=== PATIENT | female | born 1995 | race Caucasian/White ===

== ENCOUNTER 2017-06-19 13:50 | Inpatient (IN) | payer MEDICAID ==
[2017-06-21] MEDS ORDERED: MAGNESIUM HYDROXIDE 30 ML UDCUP PO PRN (17:23)
[2017-06-21] MEDS ORDERED: BISACODYL 10 MG SUPP PR PRN (17:23)
[2017-06-21] MEDS ORDERED: MAG HYDROX/AL HYDROX/SIMETH 30 ML UDCUP PO PRN (17:23)
[2017-06-21] MEDS ORDERED: ALBUTEROL 200 PUFFS/18 GM MDI IH PRN (17:33)
[2017-06-21] MEDS: IBUPROFEN 600 MG TAB PO PRN (17:56)
[2017-06-21] MEDS ORDERED: ONDANSETRON DISINTEGRATING 4 MG TAB PO PRN (18:18)
[2017-06-21] MEDS: HYDROmorphONE/DILAUDID 2 MG TAB PO PRN (19:36)
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
[2017-06-21] MEDS: ACETAMINOPHEN 325 MG TAB PO PRN (21:04)
[2017-06-21] MEDS: levETIRAcetam 500 MG TAB PO SCH (21:04)
[2017-06-21] MEDS: GABAPENTIN 100 MG CAP PO SCH (21:04)
[2017-06-21] MEDS: POLYETHYLENE GLYCOL 3350 17 GM PKT PO PRN (21:05)
[2017-06-21] MEDS: SENNOSIDES/DOCUSATE SODIUM TAB PO SCH (21:05)
[2017-06-21] MEDS: DIAZEPAM 2 MG TAB PO PRN (22:35)
[2017-06-21] MEDS: PET HY PHL TP SCH (23:40)
[2017-06-21] MEDS: MINERAL OIL TP SCH (23:40)
[2017-06-22] MEDS: HYDROmorphONE/DILAUDID 2 MG TAB PO PRN ×4 (02:48→20:39)
[2017-06-22] MEDS: IBUPROFEN 600 MG TAB PO PRN ×2 (03:20→15:12)
[2017-06-22] MEDS: ACETAMINOPHEN 325 MG TAB PO PRN (08:06)
[2017-06-22] MEDS: GABAPENTIN 100 MG CAP PO SCH ×3 (08:07→20:40)
[2017-06-22] MEDS: SENNOSIDES/DOCUSATE SODIUM TAB PO SCH ×2 (08:07→20:40)
[2017-06-22] MEDS: levETIRAcetam 500 MG TAB PO SCH ×2 (08:07→20:40)
[2017-06-22 08:26] LABS: % IMMATURE GRANULYOCYTES 0.8 % (0.0-1.1); ABSOLUTE IMMATURE GRANULOCYTES 0.07 10^3/uL (0.00-0.10); ADD DIFF? NO; ADD MORPH? NO; ADD SCAN? NO; ATYPICAL LYMPHOCYTE FLAG 20 (0-99); FRAGMENT RBC FLAG 0 (0-99); HEMATOCRIT 38.1 % (38.0-47.0); LEFT SHIFT FLG 0 (0-99); LIPEMIA HEMOLYSIS FLAG 90 (0-99); MEAN CELL HEMOGLOBIN 29.5 pg (27.9-34.1); MEAN CELL HEMOGLOBIN CONCENTR. 34.1 g/dL (32.4-36.7); MEAN CELL VOLUME 86.4 fL (81.5-99.8); MEAN PLATELET VOLUME 9.8 fL (8.7-11.7); PLATELET CLUMPS FLAG 20 (0-99); PLATELET COUNT 289 10^3/uL (150-400); RED BLOOD CELL COUNT 4.41 10^6/uL (4.18-5.33); RED CELL DISTRIBUTION WIDTH 13.2 % (11.5-15.2)
[2017-06-22 08:38] LABS: INR 0.99 (0.83-1.16)
[2017-06-22 08:44] LABS: ALANINE AMINOTRANSFERASE 29 IU/L (9-52); ALBUMIN 3.7 g/dL (3.5-5.0); ALKALINE PHOSPHATASE 76 IU/L (38-126); ANION GAP 12 mEq/L (8-16); ASPARTATE AMINOTRANSFERASE 13 IU/L (14-46); BILIRUBIN,TOTAL 0.4 mg/dL (0.1-1.4); CARBON DIOXIDE 23 mEq/l (22-31); CHLORIDE 102 mEq/L (97-110); CREATININE 0.7 mg/dL (0.6-1.0); GLOMERULAR FILTRATION RATE > 60; GLUCOSE 88 mg/dL (70-100); SODIUM 137 mEq/L (134-144); TOTAL PROTEIN 6.5 g/dL (6.3-8.2)
[2017-06-22] MEDS ORDERED: MECLIZINE HCL 25 MG TAB PO PRN (10:12)
--- NOTE | 2017-06-22 10:15 | SOAPPROG ---
SOAP Progress Note Assessment/Plan: Assessment: 1. Traumatic brain injury - Diffuse subarachnoid hemorrhage and cerebral contusions. We will continue to monitor for neurological sequelae and headaches. Seizure precautions in effect. Continue Keppra 1000 mg b.i.d. 2. Gait dysfunction - Physical therapy consultation for trunk and lower extremity strengthening, gait training. Screen for balance and dizziness. Consider cosulting physical therapist who specializes in dizziness/balance disorder. 3. Activities of daily living dysfunction. Occupational therapy consult for upper extremity and trunk strengthening. Provide assistive devices as needed. Screen for visual field deficits. 4. Speech Therapy -will consult to screen for cognitive deficits. 5. Headaches - Continue hydromorphone 2-4 mg, take 2 mg p.o. pain level of 1-5 , 4 mg p.o. pain level 6-10. I have also written orders for Tylenol 650 p.o. q.4 hours p.r.n. headache and Fioricet q.6 hours p.r.n. headache. She has retrooccular pain which is most likely referred from skull fracture. 6. Asthma - Continue Ventolin inhaler 1 puff q.6 hours p.r.n. 7. Bowel program. Bowel medications written as part of rehabilitation protocol. Encourage fluids. I have explained to patient and her father that opioid analgesics tend to cause constipation so we will try to wean her off in an appropriate fashion if constipation remains an issue. 8. Breast mass. She has a small breast mass on the sternal side of the left breast, appears mobile. Nonerythematous. We will recommend consulting gynecological services to evaluate left breast mass. 9. Code status. Full code. 10. Anticoagulation - Deep vein thrombosis prophylaxis via knee-high AKOSUA hose and sequential compression devices. Patient is not on anticoagulant medications. 11.Left wrist pain-will obtain left wrist xrays r/o ulnar styloid fracture. 12.Dizziness- begin meclazine 25 bid. Plan: 06/22/17 10:07 Subjective: She continues to c/o HAs, dizziness when sitting up and retrooccular pain. Also c/o back and posterior thigh pain Objective: Vital Signs Temp Pulse Resp BP Pulse Ox 36.9 C 67 16 101/63 93 06/22/17 07:52 06/22/17 07:52 06/22/17 07:52 06/22/17 07:52 06/22/17 07:52 Laboratory Results 06/22/17 07:30 06/22/17 07:30 06/21/17 06/22/17 06/23/17 05:59 05:59 05:59 Intake Total 490 120 Balance 490 120 PT 13.0 SEC (12.0-15.0) 06/22/17 07:30 INR 0.99 (0.83-1.16) 06/22/17 07:30 Physical Exam - Physical Exam General Appearance: WD/WN, alert, mild distress (due to DELA CRUZ and neck pain) EENT: PERRL/EOMI Neck: non-tender, full range of motion Respiratory: lungs clear Cardiac/Chest: No edema Abdomen: non-tender, soft Skin: normal color, warm/dry Extremities: other (left ulnat styloid tender to palpation), No swelling, No Dorothy's sign Neuro/Psych: no motor/sensory deficits, alert, oriented x 3 ICD10 Worksheet Patient Problems: Problems Problem Status Onset Mild TBI (traumatic brain injury) Acute - ICD10 Problem Qualifiers (1) Mild TBI (traumatic brain injury) Qualifiers: Encounter type: E Loss of consciousness presence/duration: L
[2017-06-22] MEDS: MINERAL OIL TP SCH (10:58)
[2017-06-22] MEDS: PET HY PHL TP SCH (10:58)
[2017-06-22] MEDS ORDERED: ACET/CAFFEINE/BUTA FIORICET 1 EACH TAB PO SCH (12:00)
[2017-06-22] MEDS: AQUAPHOR OINTMENT 3.5 OZ JAR TP SCH ×2 (17:01→22:00)
[2017-06-23] MEDS: HYDROmorphONE/DILAUDID 2 MG TAB PO PRN ×5 (02:39→20:39)
[2017-06-23] MEDS: GABAPENTIN 100 MG CAP PO SCH ×3 (08:16→20:19)
[2017-06-23] MEDS: levETIRAcetam 500 MG TAB PO SCH ×2 (08:16→20:19)
[2017-06-23] MEDS: SENNOSIDES/DOCUSATE SODIUM TAB PO SCH ×2 (08:16→20:19)
[2017-06-23] MEDS: IBUPROFEN 600 MG TAB PO PRN ×2 (08:18→19:29)
[2017-06-23] MEDS: AQUAPHOR OINTMENT 3.5 OZ JAR TP SCH ×3 (08:19→20:20)
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
[2017-06-23] MEDS: traMADol 50 MG TAB PO SCH ×2 (18:01→23:40)
[2017-06-23] MEDS: DIAZEPAM 2 MG TAB PO PRN (21:34)
[2017-06-24] MEDS: traMADol 50 MG TAB PO SCH ×3 (06:39→17:25)
[2017-06-24] MEDS: ACETAMINOPHEN 325 MG TAB PO PRN ×2 (06:44→11:11)
[2017-06-24] MEDS: SENNOSIDES/DOCUSATE SODIUM TAB PO SCH ×2 (08:41→20:11)
[2017-06-24] MEDS: HYDROmorphONE/DILAUDID 2 MG TAB PO PRN ×3 (08:42→19:36)
[2017-06-24] MEDS: GABAPENTIN 100 MG CAP PO SCH ×3 (08:42→20:12)
[2017-06-24] MEDS: levETIRAcetam 500 MG TAB PO SCH ×2 (08:42→20:11)
[2017-06-24] MEDS: AQUAPHOR OINTMENT 3.5 OZ JAR TP SCH ×3 (08:44→20:19)
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
[2017-06-24] MEDS: DIAZEPAM 2 MG TAB PO PRN ×2 (14:20→20:11)
[2017-06-24] MEDS: IBUPROFEN 600 MG TAB PO PRN ×2 (14:20→20:11)
[2017-06-25] MEDS: traMADol 50 MG TAB PO SCH ×5 (01:24→23:51)
[2017-06-25] MEDS: HYDROmorphONE/DILAUDID 2 MG TAB PO PRN ×4 (07:37→21:13)
[2017-06-25] MEDS: GABAPENTIN 100 MG CAP PO SCH ×3 (07:38→20:34)
[2017-06-25] MEDS: levETIRAcetam 500 MG TAB PO SCH ×2 (07:38→20:34)
[2017-06-25] MEDS: SENNOSIDES/DOCUSATE SODIUM TAB PO SCH ×2 (07:39→20:34)
[2017-06-25] MEDS: ACETAMINOPHEN 325 MG TAB PO PRN ×2 (07:46→19:41)
[2017-06-25] MEDS: AQUAPHOR OINTMENT 3.5 OZ JAR TP SCH ×2 (07:50→17:59)
[2017-06-25] MEDS: IBUPROFEN 600 MG TAB PO PRN (10:59)
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
[2017-06-25 15:12] LABS: % IMMATURE GRANULYOCYTES 0.6 % (0.0-1.1); ABSOLUTE IMMATURE GRANULOCYTES 0.04 10^3/uL (0.00-0.10); ADD DIFF? NO; ADD MORPH? NO; ADD SCAN? NO; ATYPICAL LYMPHOCYTE FLAG 10 (0-99); FRAGMENT RBC FLAG 0 (0-99); HEMATOCRIT 37.7 % (38.0-47.0); HEMOGLOBIN 12.7 g/dL (12.6-16.3); LEFT SHIFT FLG 0 (0-99); LIPEMIA HEMOLYSIS FLAG 80 (0-99); MEAN CELL HEMOGLOBIN 29.8 pg (27.9-34.1); MEAN CELL HEMOGLOBIN CONCENTR. 33.7 g/dL (32.4-36.7); MEAN CELL VOLUME 88.5 fL (81.5-99.8); MEAN PLATELET VOLUME 9.7 fL (8.7-11.7); PLATELET CLUMPS FLAG 0 (0-99); PLATELET COUNT 275 10^3/uL (150-400); RED BLOOD CELL COUNT 4.26 10^6/uL (4.18-5.33); RED CELL DISTRIBUTION WIDTH 13.2 % (11.5-15.2)
[2017-06-25] MEDS: DIAZEPAM 2 MG TAB PO PRN (19:41)
[2017-06-25] MEDS: CEPHALEXIN 500 MG CAP PO SCH ×2 (20:35→23:52)
[2017-06-26] MEDS: AQUAPHOR OINTMENT 3.5 OZ JAR TP SCH ×4 (01:37→21:57)
[2017-06-26] MEDS: traMADol 50 MG TAB PO SCH ×3 (06:28→17:02)
[2017-06-26] MEDS: CEPHALEXIN 500 MG CAP PO SCH ×3 (06:29→17:14)
[2017-06-26] MEDS: HYDROmorphONE/DILAUDID 2 MG TAB PO PRN ×6 (06:40→23:01)
[2017-06-26] MEDS: PANTOPRAZOLE SODIUM 40 MG TAB PO SCH (08:34)
[2017-06-26] MEDS: GABAPENTIN 100 MG CAP PO SCH ×3 (08:34→21:11)
[2017-06-26] MEDS: levETIRAcetam 500 MG TAB PO SCH ×2 (08:35→21:12)
[2017-06-26] MEDS: SENNOSIDES/DOCUSATE SODIUM TAB PO SCH ×2 (08:35→21:12)
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
[2017-06-26] MEDS: DIAZEPAM 2 MG TAB PO PRN ×2 (14:35→21:20)
[2017-06-26] MEDS: ACETAMINOPHEN 325 MG TAB PO PRN (21:20)
[2017-06-27] MEDS: CEPHALEXIN 500 MG CAP PO SCH ×5 (00:16→23:41)
[2017-06-27] MEDS: traMADol 50 MG TAB PO SCH ×5 (00:17→23:41)
[2017-06-27] MEDS: HYDROmorphONE/DILAUDID 2 MG TAB PO PRN ×5 (07:28→20:46)
[2017-06-27] MEDS: PANTOPRAZOLE SODIUM 40 MG TAB PO SCH (07:29)
[2017-06-27] MEDS: levETIRAcetam 500 MG TAB PO SCH ×2 (07:29→20:46)
[2017-06-27] MEDS: SENNOSIDES/DOCUSATE SODIUM TAB PO SCH ×2 (07:29→20:46)
[2017-06-27] MEDS: GABAPENTIN 100 MG CAP PO SCH ×3 (07:29→20:45)
[2017-06-27] MEDS: AQUAPHOR OINTMENT 3.5 OZ JAR TP SCH ×3 (07:32→23:48)
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
[2017-06-27] MEDS: ACETAMINOPHEN 325 MG TAB PO PRN ×2 (12:09→20:52)
[2017-06-28] MEDS: DIAZEPAM 2 MG TAB PO PRN (00:39)
[2017-06-28] MEDS: HYDROmorphONE/DILAUDID 2 MG TAB PO PRN ×6 (02:55→20:21)
[2017-06-28] MEDS: traMADol 50 MG TAB PO SCH ×4 (06:22→23:54)
[2017-06-28] MEDS: CEPHALEXIN 500 MG CAP PO SCH ×4 (06:22→23:55)
[2017-06-28] MEDS: GABAPENTIN 100 MG CAP PO SCH ×3 (09:19→20:22)
[2017-06-28] MEDS: levETIRAcetam 500 MG TAB PO SCH ×2 (09:19→20:22)
[2017-06-28] MEDS: AQUAPHOR OINTMENT 3.5 OZ JAR TP SCH ×3 (09:20→20:31)
[2017-06-28] MEDS: PANTOPRAZOLE SODIUM 40 MG TAB PO SCH (09:20)
[2017-06-28] MEDS: SENNOSIDES/DOCUSATE SODIUM TAB PO SCH ×2 (09:20→20:22)
[2017-06-28] MEDS ORDERED: BACITRACIN OINTMENT 1 PACKET TP PRN (11:06)
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
[2017-06-29] MEDS: traMADol 50 MG TAB PO SCH ×4 (06:40→23:19)
[2017-06-29] MEDS: CEPHALEXIN 500 MG CAP PO SCH (06:40)
[2017-06-29] MEDS: levETIRAcetam 500 MG TAB PO SCH ×2 (08:14→21:07)
[2017-06-29] MEDS: PANTOPRAZOLE SODIUM 40 MG TAB PO SCH (08:14)
[2017-06-29] MEDS: GABAPENTIN 100 MG CAP PO SCH ×3 (08:15→21:08)
[2017-06-29] MEDS: SENNOSIDES/DOCUSATE SODIUM TAB PO SCH ×2 (08:15→21:08)
[2017-06-29] MEDS: HYDROmorphONE/DILAUDID 2 MG TAB PO PRN ×3 (08:16→21:09)
[2017-06-29] MEDS: AQUAPHOR OINTMENT 3.5 OZ JAR TP SCH ×3 (10:10→21:27)
[2017-06-29] MEDS ORDERED: IBUPROFEN 600 MG TAB PO PRN (11:12)
[2017-06-29] MEDS: AMOXICILLIN/CLAVULANATE POT 875/125 MG TAB PO SCH ×2 (11:57→21:07)
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
[2017-06-29] MEDS: CARBOXYMETHYLCELLULOSE 1% 0.4 ML DROPERETTE EACHEYE PRN (21:13)
[2017-06-30] MEDS: traMADol 50 MG TAB PO SCH ×4 (05:37→23:38)
[2017-06-30] MEDS: AMOXICILLIN/CLAVULANATE POT 875/125 MG TAB PO SCH ×2 (09:24→21:18)
[2017-06-30] MEDS: SENNOSIDES/DOCUSATE SODIUM TAB PO SCH ×2 (09:24→21:18)
[2017-06-30] MEDS: GABAPENTIN 100 MG CAP PO SCH ×3 (09:24→21:17)
[2017-06-30] MEDS: AQUAPHOR OINTMENT 3.5 OZ JAR TP SCH ×3 (09:26→21:23)
[2017-06-30] MEDS: levETIRAcetam 500 MG TAB PO SCH (09:26)
[2017-06-30] MEDS: PANTOPRAZOLE SODIUM 40 MG TAB PO SCH (09:26)
[2017-06-30] MEDS: HYDROmorphONE/DILAUDID 2 MG TAB PO PRN ×3 (10:45→21:18)
[2017-06-30] MEDS: CARBOXYMETHYLCELLULOSE 1% 0.4 ML DROPERETTE EACHEYE PRN (10:49)
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
[2017-07-01] MEDS: traMADol 50 MG TAB PO SCH ×3 (05:20→18:33)
[2017-07-01] MEDS: AMOXICILLIN/CLAVULANATE POT 875/125 MG TAB PO SCH ×2 (08:16→20:52)
[2017-07-01] MEDS: GABAPENTIN 100 MG CAP PO SCH ×3 (08:16→20:52)
[2017-07-01] MEDS: SENNOSIDES/DOCUSATE SODIUM TAB PO SCH ×2 (08:17→20:52)
[2017-07-01] MEDS: PANTOPRAZOLE SODIUM 40 MG TAB PO SCH (08:17)
[2017-07-01] MEDS: HYDROmorphONE/DILAUDID 2 MG TAB PO PRN ×3 (08:18→20:52)
[2017-07-01] MEDS: POLYETHYLENE GLYCOL 3350 17 GM PKT PO PRN (08:25)
[2017-07-01] MEDS: AQUAPHOR OINTMENT 3.5 OZ JAR TP SCH ×3 (08:28→21:17)
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
[2017-07-01] MEDS: ACETAMINOPHEN 325 MG TAB PO PRN (20:53)
[2017-07-02] MEDS: traMADol 50 MG TAB PO SCH ×4 (00:13→17:34)
[2017-07-02] MEDS: HYDROmorphONE/DILAUDID 2 MG TAB PO PRN ×3 (04:33→19:35)
[2017-07-02] MEDS: POLYETHYLENE GLYCOL 3350 17 GM PKT PO PRN (08:13)
[2017-07-02] MEDS: SENNOSIDES/DOCUSATE SODIUM TAB PO SCH ×2 (08:13→21:14)
[2017-07-02] MEDS: AMOXICILLIN/CLAVULANATE POT 875/125 MG TAB PO SCH ×2 (08:13→21:12)
[2017-07-02] MEDS: PANTOPRAZOLE SODIUM 40 MG TAB PO SCH (08:13)
[2017-07-02] MEDS: GABAPENTIN 100 MG CAP PO SCH ×3 (08:13→21:12)
[2017-07-02] MEDS: AQUAPHOR OINTMENT 3.5 OZ JAR TP SCH ×3 (08:21→21:14)
[2017-07-02] MEDS ORDERED: LIDOCAINE 2% JELLY 5 ML TUBE TP PRN (10:31)
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
[2017-07-02] MEDS: ACETAMINOPHEN 325 MG TAB PO PRN (16:57)
[2017-07-03] MEDS: traMADol 50 MG TAB PO SCH ×5 (00:31→22:57)
[2017-07-03] MEDS: HYDROmorphONE/DILAUDID 2 MG TAB PO PRN ×3 (08:14→21:27)
[2017-07-03] MEDS: GABAPENTIN 100 MG CAP PO SCH ×3 (08:15→20:50)
[2017-07-03] MEDS: AMOXICILLIN/CLAVULANATE POT 875/125 MG TAB PO SCH ×2 (08:15→20:51)
[2017-07-03] MEDS: SENNOSIDES/DOCUSATE SODIUM TAB PO SCH ×2 (08:16→20:50)
[2017-07-03] MEDS: PANTOPRAZOLE SODIUM 40 MG TAB PO SCH (08:16)
[2017-07-03] MEDS: AQUAPHOR OINTMENT 3.5 OZ JAR TP SCH ×3 (12:10→20:59)
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
[2017-07-03] MEDS ORDERED: traZODone 50 MG TAB PO SCH (14:00)
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
[2017-07-03] MEDS: traZODone 50 MG TAB PO SCH (22:57)
[2017-07-04] MEDS: traMADol 50 MG TAB PO SCH ×4 (05:05→23:02)
[2017-07-04] MEDS: AMOXICILLIN/CLAVULANATE POT 875/125 MG TAB PO SCH ×2 (08:35→20:46)
[2017-07-04] MEDS: GABAPENTIN 100 MG CAP PO SCH ×3 (08:35→20:45)
[2017-07-04] MEDS: SENNOSIDES/DOCUSATE SODIUM TAB PO SCH ×2 (08:35→20:45)
[2017-07-04] MEDS: PANTOPRAZOLE SODIUM 40 MG TAB PO SCH (08:35)
[2017-07-04] MEDS: HYDROmorphONE/DILAUDID 2 MG TAB PO PRN ×3 (08:36→19:37)
[2017-07-04] MEDS: MAGNESIUM HYDROXIDE 30 ML UDCUP PO SCH (10:21)
[2017-07-04] MEDS: AQUAPHOR OINTMENT 3.5 OZ JAR TP SCH ×3 (10:28→22:46)
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
[2017-07-04] MEDS: CARBOXYMETHYLCELLULOSE 1% 0.4 ML DROPERETTE EACHEYE PRN (15:36)
[2017-07-04 19:27] VITALS: RESP 16
[2017-07-04] MEDS: traZODone 50 MG TAB PO SCH (23:02)
[2017-07-05] MEDS: traMADol 50 MG TAB PO SCH ×4 (05:43→23:25)
[2017-07-05] MEDS: GABAPENTIN 100 MG CAP PO SCH ×3 (07:38→20:42)
[2017-07-05] MEDS: AMOXICILLIN/CLAVULANATE POT 875/125 MG TAB PO SCH (07:39)
[2017-07-05] MEDS: HYDROmorphONE/DILAUDID 2 MG TAB PO PRN ×2 (07:39→15:28)
[2017-07-05] MEDS: PANTOPRAZOLE SODIUM 40 MG TAB PO SCH (07:40)
[2017-07-05] MEDS: AQUAPHOR OINTMENT 3.5 OZ JAR TP SCH ×3 (07:40→20:51)
[2017-07-05] MEDS: SENNOSIDES/DOCUSATE SODIUM TAB PO SCH ×2 (07:40→20:43)
[2017-07-05] MEDS: MAGNESIUM HYDROXIDE 30 ML UDCUP PO SCH (07:47)
[2017-07-05] MEDS: POLYETHYLENE GLYCOL 3350 17 GM PKT PO PRN (11:03)
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
[2017-07-05] MEDS: traZODone 50 MG TAB PO SCH (20:43)
[2017-07-06] MEDS: traMADol 50 MG TAB PO SCH ×2 (06:27→11:17)
[2017-07-06 07:22] VITALS: BP 95/63; PULSE 70; TEMP 98.1; O2SAT 94
[2017-07-06] MEDS: HYDROmorphONE/DILAUDID 2 MG TAB PO PRN (08:01)
[2017-07-06] MEDS: PANTOPRAZOLE SODIUM 40 MG TAB PO SCH (08:02)
[2017-07-06] MEDS: GABAPENTIN 100 MG CAP PO SCH (08:02)
[2017-07-06] MEDS: SENNOSIDES/DOCUSATE SODIUM TAB PO SCH (08:02)
[2017-07-06] MEDS: AQUAPHOR OINTMENT 3.5 OZ JAR TP SCH (08:03)
[2017-07-06] MEDS ORDERED: FLU VACC QS 2017-18 (3YR+)/PF 0.5 ML SYR (FLUARIX QUAD) IM ONE (11:41)
[2017-07-06] MEDS: MAGNESIUM HYDROXIDE 30 ML UDCUP PO SCH (11:47)
[2017-07-06] MEDS: CARBOXYMETHYLCELLULOSE 1% 0.4 ML DROPERETTE EACHEYE PRN (13:19)
--- NOTE | 2017-07-06 14:27 | PDOREHIP ---
Admission [facility] - Admission - 3 Day Assessment Period Admission Date/Day 1: 06/21/17 Day 2: 06/22/17 Day 3: 06/23/17 Discharge [facility] - Discharge - 3 Day Assessment Period 2 Days Prior to Anticipated Discharge Date: 07/04/17 1 Day Prior to Anticipated Discharge Date: 07/05/17 Anticipated Discharge Date: 07/06/17 - Discharge Skin Conditions Unhealed Pressure Ulcer (1 or more/Stage 1 or >)-Discharge: 0. No
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
== END 2017-07-06 13:47 | disposition home or self-care (01) | DRG 561 ==
LOC: BREH 06-21 16:08 → EEVIPCON 06-21 16:08 → BREH 07-04 13:07
PROVIDERS: ADMIT Physical Medicine & Rehabilitation; ATTEND Internal Medicine
PROC: F08Z4ZZ Home Management Treatment (ICD-10-PCS; principal; 2017-06-21)
PROC: F0636ZZ Communicative/Cognitive Integration Skills Treatment of Neurological System - Whole Body (ICD-10-PCS; principal; 2017-06-21)
PROC: F07M3ZZ Motor Function Treatment of Musculoskeletal System - Whole Body (ICD-10-PCS; principal; 2017-06-21)
DX: S02.119D Unspecified fracture of occiput, subsequent encounter for fracture with routine healing (principal); S06.6X1D Traumatic subarachnoid hemorrhage with loss of consciousness of 30 minutes or less, subsequent encounter; S30.810D Abrasion of lower back and pelvis, subsequent encounter; J45.909 Unspecified asthma, uncomplicated; R26.81 Unsteadiness on feet; D64.9 Anemia, unspecified; N61.1 Abscess of the breast and nipple; B95.2 Enterococcus as the cause of diseases classified elsewhere; M51.37 Other intervertebral disc degeneration, lumbosacral region; F43.12 Post-traumatic stress disorder, chronic; M25.532 Pain in left wrist; V48.4XXD Person boarding or alighting a car injured in noncollision transport accident, subsequent encounter; Z91.419 Personal history of unspecified adult abuse; K59.03 Drug induced constipation; F41.8 Other specified anxiety disorders; Z23 Encounter for immunization
CPT/HCPCS: 92507-GN; 92522-GN; 97110-GO; 97110-GP; 97112-GO; 97112-GP; 97116-GP; 97140-GO; 97140-GP; 97162-GP; 97166-GO; 97530-GO; 97530-GP; 97532-GO; 97535-GO; 97542-GP; G0008; G0463